=== PATIENT | female | born 1955 ===

== ENCOUNTER 2021-12-02 14:17 | Emergency (ER) | payer OTHER ==
[~2021-12-02] VITALS: Ht 154.9 cm; Wt 73.5 kg
[~2021-12-02 14:17] MED LIST: AMLODIPINE BESY10 MG; BISOPROLOL/HCTZ1 TA2; DICLOFENAC SODI75 MG PO; DOXYCYCLINE HY100 MG PO; FLEXERIL5 MG PO; NAPROXEN SODIU550 M1 PO; [UNRECOGNIZED DRUG - OTHER] MC
[2021-12-02] MEDS ORDERED: BISOPROLOL-HCT1 EAC2 PO (14:49)
== END 2021-12-02 18:58 | disposition home or self-care (01) ==
LOC: ER 14:17
DX: I10 Essential (primary) hypertension (principal); Z88.0 Allergy status to penicillin